=== PATIENT | male | born 1960 | race Caucasian/White ===

== ENCOUNTER 2021-06-01 11:59 | Outpatient (REF) | payer OTHER, SELFPAY ==
--- NOTE | ~2021-06-01 | XR_ITS ---
EXAMINATION: XR WRIST, RIGHT CLINICAL INFORMATION: Pain. COMPARISON: None TECHNIQUE: PA, lateral, and oblique views of the right wrist. FINDINGS: There is a subchondral cyst in the capitate bone and likely in the lunate bone. The scapholunate junction is maintained normal. The scapholunate and other intercarpal joint space is maintained normal. No fracture or dislocation seen. The soft tissues are normal. XR/XR wrist RT min 3V IMPRESSION: Cystic changes in the capitate bone and likely in the lunate bone. No acute fracture or dislocation seen.
== END 2021-06-01 12:00 | disposition home or self-care (01) ==
LOC: HO.XRAY 11:59
PROVIDERS: Absent Provider Registered Nurse Community Health; PCP Registered Nurse Community Health; Visit Provider Family Medicine
DX: M25.531 Pain in right wrist (principal)
CPT/HCPCS: 73110

== ENCOUNTER 2021-09-20 09:32 | Outpatient (REF) | payer OTHER, SELFPAY ==
--- NOTE | ~2021-09-20 | XR_ITS ---
EXAMINATION: XR LUMBOSACRAL SPINE CLINICAL INFORMATION: Low back pain. COMPARISON: None TECHNIQUE: Three views of the lumbosacral spine. FINDINGS: There is normal lumbar segmentation with 5 nonrib-bearing lumbar vertebrae of normal height and normal lumbar lordosis. There is no lumbar vertebral compression, spondylolisthesis, or destructive process. There is mild disc narrowing at L2-L3. Anterior and mild lateral vertebral spurring is present L2 through L5. The SI joints and visualized sacrum are unremarkable. XR/XR lumbar spine 2-3V IMPRESSION: -Mild disc narrowing L2-L3. Vertebral spurring L2-L5. -No vertebral compression or spondylolisthesis.
== END 2021-09-20 09:33 | disposition home or self-care (01) ==
LOC: HO.XRAY 09:32
PROVIDERS: Absent Provider Registered Nurse Community Health; PCP Registered Nurse Community Health; Visit Provider Family Medicine
DX: M54.50 Low back pain, unspecified (principal)
CPT/HCPCS: 72100

== ENCOUNTER → 2022-05-16 15:15 | Outpatient (BNVA) | payer OTHER, SELFPAY | PROVIDERS: PCP Nurse Practitioner Family; Visit Provider Surgery | DX: M67.422 Ganglion, left elbow (principal); I10 Essential (primary) hypertension; E78.00 Pure hypercholesterolemia, unspecified | CPT/HCPCS: 99202 ==

== ENCOUNTER 2022-06-02 13:35 | Emergency (ER) | payer OTHER, SELFPAY ==
--- NOTE | ~2022-06-02 | XR_ITS ---
EXAMINATION: XR CHEST CLINICAL INFORMATION: Chest pain and shortness of breath COMPARISON: None TECHNIQUE: 2 views of the chest were obtained. FINDINGS: Lung volumes are slightly low. Mild vascular crowding at the lung bases. No airspace consolidation. No pleural effusion or pneumothorax. Normal cardiomediastinal silhouette and pulmonary vascularity. No acute osseous injury. XR/XR chest 2V IMPRESSION: Low lung volumes. No acute pulmonary process.
--- NOTE | 2022-06-02 13:48 | ED.GENADULT ---
HPI - General Adult General Chief complaint: General Medical <Kassidy Dewitt CNP - Last Filed: 06/02/22 13:55> Stated complaint: Pain when breathing L&R side <Kassidy Dewitt CNP - Last Filed: 06/02/22 13:55> Time Seen by Provider: 06/02/22 14:26 <Kassidy Dewitt CNP - Last Filed: 06/02/22 13:55> Source: patient <Amanda Vasquez MD - Last Filed: 06/02/22 16:33> Mode of arrival: ambulatory <Amanda Vasquez MD - Last Filed: 06/02/22 16:33> History of Present Illness HPI narrative: 62-year-old male with recent right knee meniscal repair and decreased activity since that time a presenting with increasing chest wall discomfort that is bilateral in nature and he states radiates from the center of his back towards the front and is worsened with movement but denies any association with deep breathing. This is not been associated with any calf swelling, fevers, chills, GI or symptoms. <Amanda Vasquez MD - Last Filed: 06/02/22 16:33> Related Data Home medications: Home Medications Medication Instructions Recorded Confirmed atorvastatin 20 mg tablet 20 mg PO DAILY 05/16/22 05/16/22 lisinopril 10 mg tablet 10 mg PO QAM 05/16/22 05/16/22 <Kassidy Dewitt CNP - Last Filed: 06/02/22 13:55> Allergies/adverse reactions: Allergies Allergy/AdvReac Type Severity Reaction Status Date / Time No Known Allergies Allergy Verified 05/16/22 15:28 <Kassidy Dewitt CNP - Last Filed: 06/02/22 13:55> Review of Systems Review of Systems: Pertinent positives and negatives as stated in HPI <Amanda Vasquez MD - Last Filed: 06/02/22 16:33> PMFSH Past Medical History Source: nursing notes reviewed <Amanda Vasquez MD - Last Filed: 06/02/22 16:33> Social History Social History: Social History Alcohol intake: never Patient Tobacco Use Status: Never used Tobacco Advance Directives: No Advance Directives Information Provided: No <Kassidy Dewitt CNP - Last Filed: 06/02/22 13:55> Physical Exam ED Vital Signs: Vital Signs - 24 hr 06/02/22 13:49 06/02/22 15:39 Temperature 97.9 F 98.2 F Pulse Rate 80 64 Respiratory Rate 18 16 Blood Pressure 126/80 115/71 Pulse Oximetry 98 96 Oxygen Delivery Method Room Air Room Air BMI result Body Mass Index 27.3 <Kassidy Dewitt CNP - Last Filed: 06/02/22 13:55> Vital Signs - 24 hr 06/02/22 13:49 06/02/22 15:39 Temperature 97.9 F 98.2 F Pulse Rate 80 64 Respiratory Rate 18 16 Blood Pressure 126/80 115/71 Pulse Oximetry 98 96 Oxygen Delivery Method Room Air Room Air BMI result Body Mass Index 27.3 VITAL SIGNS: Reviewed. GENERAL: Well developed, well nourished, in no acute distress. HEAD: Normocephalic/atraumatic EYES: PERRLA, EOMI EARS: Ext canals without abnormality NOSE: Nares patent bilateral OROPHARYNX: no oral lesions noted, posterior pharynx clear LUNGS: Normal breath sounds. No adventitious sounds or accessory muscle use. SpO2<98>; CHEST WALL: Reproducible chest pain on palpation bilaterally CARDIOVASCULAR: Regular rate and rhythm without noted murmurs, no JVD or lower extremity edema. ABDOMEN: Soft, non-tender, non-distended with bowel sounds. BACK: Mid back discomfort on palpation at the level of the scapula, no erythema or induration MUSCULOSKELETAL: No tenderness, deformities, or effusions noted on gross inspection. EXTREMITIES: No cyanosis, clubbing or edema; RIGHT KNEE: WELL-HEALING INCISION SITES without erythema or induration no edema, bilateral calf sore without any swelling or cords noted . SKIN: Inspection of the skin reveals no rashes NEUROLOGIC: Alert and oriented x 4. Strength and sensation to light touch were grossly intact x 4. <Amanda Vasquez MD - Last Filed: 06/02/22 16:33> Course Course Course Narrative: This is an RME: Additional HPI, ROS, PE not included below will be deferred to primary provider. Patient is a 62-year-old male presents to the emergency department reporting pain to left and right lateral chest, made worse with deep breathing/ movement, progressively worsening with shortness of breath. Not a smoker. Denies shortness of breath. Pain minimally relieved with tylenol. Denies URI symptoms. Denies fall or injury. Denies history of similar PE: LS clear but diminished, chest wall tenderness upon palpation Plan: labs, EKG, CXR, viral testing <Kassidy Dewitt CNP - Last Filed: 06/02/22 13:55> Medications Administered Discontinued Medications Generic Name Dose Route Start Last Admin Trade Name Freq PRN Reason Stop Dose Admin Acetaminophen 975 mg 06/02/22 15:46 06/02/22 16:17 Acetaminophen 325 Mg Tablet PO 06/02/22 15:47 975 mg ONCE ONE Administration Ibuprofen 400 mg 06/02/22 15:45 06/02/22 16:17 Ibuprofen 400 Mg Tablet PO 06/02/22 15:46 400 mg ONCE ONE Administration Lidocaine 1 patch 06/02/22 15:45 06/02/22 16:15 Lidocaine 4 % Patch Adh..Patch TRANSDERMA 06/02/22 15:46 1 patch ONCE ONE Administration Protocol <Kassidy Dewitt CNP - Last Filed: 06/02/22 13:55> Medications Administered Discontinued Medications Generic Name Dose Route Start Last Admin Trade Name Freq PRN Reason Stop Dose Admin Acetaminophen 975 mg 06/02/22 15:46 06/02/22 16:17 Acetaminophen 325 Mg Tablet PO 06/02/22 15:47 975 mg ONCE ONE Administration Ibuprofen 400 mg 06/02/22 15:45 06/02/22 16:17 Ibuprofen 400 Mg Tablet PO 06/02/22 15:46 400 mg ONCE ONE Administration Lidocaine 1 patch 06/02/22 15:45 06/02/22 16:15 Lidocaine 4 % Patch Adh..Patch TRANSDERMA 06/02/22 15:46 1 patch ONCE ONE Administration Protocol <Amanda Vasquez MD - Last Filed: 06/02/22 16:33> Medical Decision Making Medical Decision Making MDM Narrative: 62-year-old male although high clinical suspicion for decrease activity and feel that this is radicular chest wall pain from the mid upper back as it is reproducible and I have 0 clinical suspicion for cardiopulmonary etiology, unfortunately patient has had recent surgery with decreased activity and patient PERC score is 2. I will proceed with D-dimer. I have reviewed on all investigations and my interpretation is that this is musculoskeletal pain/back pain and patient received combination analgesics and was instructed to continue to increase his physical activity and resume physical therapy it is earliest convenience. D-dimer is returned at 157 and I feel very confident that this is as previously thought associated with musculoskeletal pain and patient will be discharged on a regimen and of analgesics and instructions to increase activity. <Amanda Vasquez MD - Last Filed: 06/02/22 16:33> Differential Diagnosis Differential Diagnoses: The differential diagnosis associated with the presentation includes <Amanda Vasquez MD - Last Filed: 06/02/22 16:33> Please see the discussion above <Amanda Vasquez MD - Last Filed: 06/02/22 16:33> Lab Data MDM Lab Attestation statement: I reviewed the patient's lab results. <Amanda Vasquez MD - Last Filed: 06/02/22 16:33> Please see the discussion above <Amanda Vasquez MD - Last Filed: 06/02/22 16:33> Result Diagrams: 06/02/22 14:35 06/02/22 14:35 <Kassidy Dewitt CNP - Last Filed: 06/02/22 13:55> Labs: Lab Results 06/02/22 06/02/22 06/02/22 Range/Units 14:35 14:35 14:35 WBC 7.5 (4.8-10.8) X10*3/uL RBC 4.47 L (4.60-5.80) X10*6/uL Hgb 13.0 L (14.0-18.0) g/dl Hct 38.2 L (42.0-52.0) % MCV 85.5 (80.0-98.0) fL MCH 29.1 (27.0-33.0) pg MCHC 34.0 (31.0-36.0) g/dl RDW 12.4 (11.0-16.0) % Plt Count 298 (160-400) X10*3/uL MPV 10.1 (9.4-12.4) fL Immature Gran % (Auto) 0.3 (0.0-0.4) % Neut % (Auto) 55.5 (45-73) % Lymph % (Auto) 31.9 (20-40) % Roosevelt % (Auto) 10.5 (2-11) % Eos % (Auto) 1.3 (0-4) % Baso % (Auto) 0.5 (0-2) % Lymph # (Auto) 2.4 (1.2-4.9) X10*3/uL Roosevelt # (Auto) 0.8 (0.1-1.2) X10*3/uL Eos # (Auto) 0.1 (0.0-0.4) X10*3/uL Baso # (Auto) 0.0 (0.0-0.2) X10*3/uL Abs Immat Gran (auto) 0.02 (0.00-0.03) X10*3/uL Absolute Neuts (auto) 4.1 (2.0-8.3) x10*3/uL Absolute Nucleated RBC 0.000 (0.0-0.012) X10*3/uL Nucleated RBC % (auto) 0.0 (0.0-0.2) /100WBC PT 11.2 (10.0-13.1) SEC INR 1.0 (0.9-1.1) D-Dimer High Sensitivty 157 NG/ML Sodium 137 (135-145) mmol/L Potassium 4.3 (3.3-5.1) mmol/L Chloride 106 (96-108) mmol/L Carbon Dioxide 23 (22-29) mmol/L Anion Gap 12 (12-20) BUN 14 (9-16) mg/dL Creatinine 1.07 (0.5-1.4) mg/dL Estim Creat Clear Calc 71.5 Estimated GFR > 60 Random Glucose 111 (60-115) mg/dL Calcium 8.8 (8.4-10.2) mg/dL Total Bilirubin 0.3 (0.0-1.0) mg/dL AST 20 (5-37) U/L ALT 28 (0-40) U/L Alkaline Phosphatase 75 (39-117) U/L Troponin I High Sens (<3.5-35.0) ng/L B-Natriuretic Peptide (<100) pg/mL Total Protein 6.4 L (6.5-8.0) g/dL Albumin 3.7 (3.5-5.0) g/dL Lipase 24 (8-78) U/L COVID-19 (GIUSEPPE) (Negative) COVID-19 Clin Com Influenza Type A ([facility]) (Negative) Influenza Type B ([facility]) (Negative) Influenza A & B Note 06/02/22 06/02/22 06/02/22 Range/Units 14:35 14:35 14:35 WBC (4.8-10.8) X10*3/uL RBC (4.60-5.80) X10*6/uL Hgb (14.0-18.0) g/dl Hct (42.0-52.0) % MCV (80.0-98.0) fL MCH (27.0-33.0) pg MCHC (31.0-36.0) g/dl RDW (11.0-16.0) % Plt Count (160-400) X10*3/uL MPV (9.4-12.4) fL Immature Gran % (Auto) (0.0-0.4) % Neut % (Auto) (45-73) % Lymph % (Auto) (20-40) % Roosevelt % (Auto) (2-11) % Eos % (Auto) (0-4) % Baso % (Auto) (0-2) % Lymph # (Auto) (1.2-4.9) X10*3/uL Roosevelt # (Auto) (0.1-1.2) X10*3/uL Eos # (Auto) (0.0-0.4) X10*3/uL Baso # (Auto) (0.0-0.2) X10*3/uL Abs Immat Gran (auto) (0.00-0.03) X10*3/uL Absolute Neuts (auto) (2.0-8.3) x10*3/uL Absolute Nucleated RBC (0.0-0.012) X10*3/uL Nucleated RBC % (auto) (0.0-0.2) /100WBC PT (10.0-13.1) SEC INR (0.9-1.1) D-Dimer High Sensitivty NG/ML Sodium (135-145) mmol/L Potassium (3.3-5.1) mmol/L Chloride (96-108) mmol/L Carbon Dioxide (22-29) mmol/L Anion Gap (12-20) BUN (9-16) mg/dL Creatinine (0.5-1.4) mg/dL Estim Creat Clear Calc Estimated GFR Random Glucose (60-115) mg/dL Calcium (8.4-10.2) mg/dL Total Bilirubin (0.0-1.0) mg/dL AST (5-37) U/L ALT (0-40) U/L Alkaline Phosphatase (39-117) U/L Troponin I High Sens < 3.5 (<3.5-35.0) ng/L B-Natriuretic Peptide 10 (<100) pg/mL Total Protein (6.5-8.0) g/dL Albumin (3.5-5.0) g/dL Lipase (8-78) U/L COVID-19 (GIUSEPPE) Negative (Negative) COVID-19 Clin Com See Note Influenza Type A ([facility]) (Negative) Influenza Type B ([facility]) (Negative) Influenza A & B Note 06/02/22 Range/Units 14:35 WBC (4.8-10.8) X10*3/uL RBC (4.60-5.80) X10*6/uL Hgb (14.0-18.0) g/dl Hct (42.0-52.0) % MCV (80.0-98.0) fL MCH (27.0-33.0) pg MCHC (31.0-36.0) g/dl RDW (11.0-16.0) % Plt Count (160-400) X10*3/uL MPV (9.4-12.4) fL Immature Gran % (Auto) (0.0-0.4) % Neut % (Auto) (45-73) % Lymph % (Auto) (20-40) % Roosevelt % (Auto) (2-11) % Eos % (Auto) (0-4) % Baso % (Auto) (0-2) % Lymph # (Auto) (1.2-4.9) X10*3/uL Roosevelt # (Auto) (0.1-1.2) X10*3/uL Eos # (Auto) (0.0-0.4) X10*3/uL Baso # (Auto) (0.0-0.2) X10*3/uL Abs Immat Gran (auto) (0.00-0.03) X10*3/uL Absolute Neuts (auto) (2.0-8.3) x10*3/uL Absolute Nucleated RBC (0.0-0.012) X10*3/uL Nucleated RBC % (auto) (0.0-0.2) /100WBC PT (10.0-13.1) SEC INR (0.9-1.1) D-Dimer High Sensitivty NG/ML Sodium (135-145) mmol/L Potassium (3.3-5.1) mmol/L Chloride (96-108) mmol/L Carbon Dioxide (22-29) mmol/L Anion Gap (12-20) BUN (9-16) mg/dL Creatinine (0.5-1.4) mg/dL Estim Creat Clear Calc Estimated GFR Random Glucose (60-115) mg/dL Calcium (8.4-10.2) mg/dL Total Bilirubin (0.0-1.0) mg/dL AST (5-37) U/L ALT (0-40) U/L Alkaline Phosphatase (39-117) U/L Troponin I High Sens (<3.5-35.0) ng/L B-Natriuretic Peptide (<100) pg/mL Total Protein (6.5-8.0) g/dL Albumin (3.5-5.0) g/dL Lipase (8-78) U/L COVID-19 (GIUSEPPE) (Negative) COVID-19 Clin Com Influenza Type A ([facility]) Negative (Negative) Influenza Type B ([facility]) Negative (Negative) Influenza A & B Note See Note <Kassidy Dewitt, [employer] - Last Filed: 06/02/22 13:55> Lab Results 06/02/22 06/02/22 06/02/22 Range/Units 14:35 14:35 14:35 WBC 7.5 (4.8-10.8) X10*3/uL RBC 4.47 L (4.60-5.80) X10*6/uL Hgb 13.0 L (14.0-18.0) g/dl Hct 38.2 L (42.0-52.0) % MCV 85.5 (80.0-98.0) fL MCH 29.1 (27.0-33.0) pg MCHC 34.0 (31.0-36.0) g/dl RDW 12.4 (11.0-16.0) % Plt Count 298 (160-400) X10*3/uL MPV 10.1 (9.4-12.4) fL Immature Gran % (Auto) 0.3 (0.0-0.4) % Neut % (Auto) 55.5 (45-73) % Lymph % (Auto) 31.9 (20-40) % Roosevelt % (Auto) 10.5 (2-11) % Eos % (Auto) 1.3 (0-4) % Baso % (Auto) 0.5 (0-2) % Lymph # (Auto) 2.4 (1.2-4.9) X10*3/uL Roosevelt # (Auto) 0.8 (0.1-1.2) X10*3/uL Eos # (Auto) 0.1 (0.0-0.4) X10*3/uL Baso # (Auto) 0.0 (0.0-0.2) X10*3/uL Abs Immat Gran (auto) 0.02 (0.00-0.03) X10*3/uL Absolute Neuts (auto) 4.1 (2.0-8.3) x10*3/uL Absolute Nucleated RBC 0.000 (0.0-0.012) X10*3/uL Nucleated RBC % (auto) 0.0 (0.0-0.2) /100WBC PT 11.2 (10.0-13.1) SEC INR 1.0 (0.9-1.1) D-Dimer High Sensitivty 157 NG/ML Sodium 137 (135-145) mmol/L Potassium 4.3 (3.3-5.1) mmol/L Chloride 106 (96-108) mmol/L Carbon Dioxide 23 (22-29) mmol/L Anion Gap 12 (12-20) BUN 14 (9-16) mg/dL Creatinine 1.07 (0.5-1.4) mg/dL Estim Creat Clear Calc 71.5 Estimated GFR > 60 Random Glucose 111 (60-115) mg/dL Calcium 8.8 (8.4-10.2) mg/dL Total Bilirubin 0.3 (0.0-1.0) mg/dL AST 20 (5-37) U/L ALT 28 (0-40) U/L Alkaline Phosphatase 75 (39-117) U/L Troponin I High Sens (<3.5-35.0) ng/L B-Natriuretic Peptide (<100) pg/mL Total Protein 6.4 L (6.5-8.0) g/dL Albumin 3.7 (3.5-5.0) g/dL Lipase 24 (8-78) U/L COVID-19 (GIUSEPPE) (Negative) COVID-19 Clin Com Influenza Type A ([facility]) (Negative) Influenza Type B ([facility]) (Negative) Influenza A & B Note 06/02/22 06/02/22 06/02/22 Range/Units 14:35 14:35 14:35 WBC (4.8-10.8) X10*3/uL RBC (4.60-5.80) X10*6/uL Hgb (14.0-18.0) g/dl Hct (42.0-52.0) % MCV (80.0-98.0) fL MCH (27.0-33.0) pg MCHC (31.0-36.0) g/dl RDW (11.0-16.0) % Plt Count (160-400) X10*3/uL MPV (9.4-12.4) fL Immature Gran % (Auto) (0.0-0.4) % Neut % (Auto) (45-73) % Lymph % (Auto) (20-40) % Roosevelt % (Auto) (2-11) % Eos % (Auto) (0-4) % Baso % (Auto) (0-2) % Lymph # (Auto) (1.2-4.9) X10*3/uL Roosevelt # (Auto) (0.1-1.2) X10*3/uL Eos # (Auto) (0.0-0.4) X10*3/uL Baso # (Auto) (0.0-0.2) X10*3/uL Abs Immat Gran (auto) (0.00-0.03) X10*3/uL Absolute Neuts (auto) (2.0-8.3) x10*3/uL Absolute Nucleated RBC (0.0-0.012) X10*3/uL Nucleated RBC % (auto) (0.0-0.2) /100WBC PT (10.0-13.1) SEC INR (0.9-1.1) D-Dimer High Sensitivty NG/ML Sodium (135-145) mmol/L Potassium (3.3-5.1) mmol/L Chloride (96-108) mmol/L Carbon Dioxide (22-29) mmol/L Anion Gap (12-20) BUN (9-16) mg/dL Creatinine (0.5-1.4) mg/dL Estim Creat Clear Calc Estimated GFR Random Glucose (60-115) mg/dL Calcium (8.4-10.2) mg/dL Total Bilirubin (0.0-1.0) mg/dL AST (5-37) U/L ALT (0-40) U/L Alkaline Phosphatase (39-117) U/L Troponin I High Sens < 3.5 (<3.5-35.0) ng/L B-Natriuretic Peptide 10 (<100) pg/mL Total Protein (6.5-8.0) g/dL Albumin (3.5-5.0) g/dL Lipase (8-78) U/L COVID-19 (GIUSEPPE) Negative (Negative) COVID-19 Clin Com See Note Influenza Type A ([facility]) (Negative) Influenza Type B ([facility]) (Negative) Influenza A & B Note 06/02/22 Range/Units 14:35 WBC (4.8-10.8) X10*3/uL RBC (4.60-5.80) X10*6/uL Hgb (14.0-18.0) g/dl Hct (42.0-52.0) % MCV (80.0-98.0) fL MCH (27.0-33.0) pg MCHC (31.0-36.0) g/dl RDW (11.0-16.0) % Plt Count (160-400) X10*3/uL MPV (9.4-12.4) fL Immature Gran % (Auto) (0.0-0.4) % Neut % (Auto) (45-73) % Lymph % (Auto) (20-40) % Roosevelt % (Auto) (2-11) % Eos % (Auto) (0-4) % Baso % (Auto) (0-2) % Lymph # (Auto) (1.2-4.9) X10*3/uL Roosevelt # (Auto) (0.1-1.2) X10*3/uL Eos # (Auto) (0.0-0.4) X10*3/uL Baso # (Auto) (0.0-0.2) X10*3/uL Abs Immat Gran (auto) (0.00-0.03) X10*3/uL Absolute Neuts (auto) (2.0-8.3) x10*3/uL Absolute Nucleated RBC (0.0-0.012) X10*3/uL Nucleated RBC % (auto) (0.0-0.2) /100WBC PT (10.0-13.1) SEC INR (0.9-1.1) D-Dimer High Sensitivty NG/ML Sodium (135-145) mmol/L Potassium (3.3-5.1) mmol/L Chloride (96-108) mmol/L Carbon Dioxide (22-29) mmol/L Anion Gap (12-20) BUN (9-16) mg/dL Creatinine (0.5-1.4) mg/dL Estim Creat Clear Calc Estimated GFR Random Glucose (60-115) mg/dL Calcium (8.4-10.2) mg/dL Total Bilirubin (0.0-1.0) mg/dL AST (5-37) U/L ALT (0-40) U/L Alkaline Phosphatase (39-117) U/L Troponin I High Sens (<3.5-35.0) ng/L B-Natriuretic Peptide (<100) pg/mL Total Protein (6.5-8.0) g/dL Albumin (3.5-5.0) g/dL Lipase (8-78) U/L COVID-19 (GIUSEPPE) (Negative) COVID-19 Clin Com Influenza Type A ([facility]) Negative (Negative) Influenza Type B ([facility]) Negative (Negative) Influenza A & B Note See Note <Amanda Vasquez MD - Last Filed: 06/02/22 16:33> Independent Interpretation I performed an independent interpretation of an: EKG <Amanda Vasquez MD - Last Filed: 06/02/22 16:33> Interpretation: Normal sinus rhythm, HR-69, no STEMI, MI/QRS/QTC are within normal limits. <Amanda Vasquez MD - Last Filed: 06/02/22 16:33> Radiology Impression Radiologist Impression: My interpretation is in agreement with radiology's impression of the imaging study. <Amanda Vasquez MD - Last Filed: 06/02/22 16:33> Independent Historian Family <Amanda Vasquez MD - Last Filed: 06/02/22 16:33> External Record Review External record reviewed: Outpatient record and Prior outpatient labs <Amanda Vasquez MD - Last Filed: 06/02/22 16:33> Discharge Plan Discharge Clinical Impression: Back pain, Chest wall pain <Kassidy Dewitt CNP - Last Filed: 06/02/22 13:55> Patient Disposition: Home, Self-Care <Kassidy Dewitt CNP - Last Filed: 06/02/22 13:55> Instructions: Back Pain (ED), Chest Wall Pain (ED) <Kassidy Dewitt CNP - Last Filed: 06/02/22 13:55> Additional Instructions: 1. Resume all home medications. 2. Tylenol 1000 mg, orally, every 6 hours as needed for pain control. Do not exceed 4000 mg within 24 hours. 3. Ibuprofen 400 mg, orally with milk or food, every 6 hours as needed for pain control. 4. Lidocaine patch, apply this to the middle of your back wear your pain is as directed on the outside packaging. 5. I recommend that you start your physical therapy as soon as possible. And overall increase your activity level. Return to the ER for any worsening symptoms. <Kassidy Dewitt CNP - Last Filed: 06/02/22 13:55> Prescriptions: No Action lisinopril 10 mg tablet 10 mg PO QAM atorvastatin 20 mg tablet 20 mg PO DAILY <Kassidy Dewitt CNP - Last Filed: 06/02/22 13:55> Referrals: [facility] [Primary Care Provider] - <Kassidy Dewitt CNP - Last Filed: 06/02/22 13:55>
[2022-06-02 13:49] VITALS: BP 126/80; PULSE 80; RESP 18; TEMP 36.6; O2SAT 98; BMI 27.3
--- NOTE | 2022-06-02 13:50 | ECG_ITS ---
Test Reason : pain with breathing Blood Pressure : / mmHG Vent. Rate : 069 BPM Atrial Rate : 069 BPM P-R Int : 160 ms QRS Dur : 086 ms QT Int : 376 ms P-R-T Axes : 064 048 062 degrees QTc Int : 402 ms Normal sinus rhythm Normal ECG No previous ECGs available Referred By: Kassidy Dewitt Electronically Signed By:Gamaliel Forbes
--- NOTE | 2022-06-02 14:27 | MHC.EDTECH ---
EKG completed and signed by
--- NOTE | 2022-06-02 14:37 | MHC.EDTECH ---
Labs drawn and covid/flu swab sent to lab
[2022-06-02 14:41] LABS: MANUAL DIFF FLAG NO
[2022-06-02 14:42] LABS: Basophils Percent Auto 0.5 % (0-2); Eosinophils Absolute Auto 0.1 X10*3/uL (0.0-0.4); Eosinophils Percent Auto 1.3 % (0-4); Hematocrit 38.2 % (42.0-52.0); Imm Gran Abs Auto 0.02 X10*3/uL (0.00-0.03); Imm Gran Pct Auto 0.3 % (0.0-0.4); Lymphocytes Absolute Auto 2.4 X10*3/uL (1.2-4.9); Lymphocytes Percent Auto 31.9 % (20-40); Mean Corpuscular Hemoglobin 29.1 pg (27.0-33.0); Mean Corpuscular Volume 85.5 fL (80.0-98.0); Mean Platelet Volume 10.1 fL (9.4-12.4); Monocytes Absolute Auto 0.8 X10*3/uL (0.1-1.2); Monocytes Percent Auto 10.5 % (2-11); Neutrophils Absolute Auto 4.1 x10*3/uL (2.0-8.3); Neutrophils Percent Auto 55.5 % (45-73); Platelet Count 298 X10*3/uL (160-400); Red Blood Count 4.47 X10*6/uL (4.60-5.80); Red Cell Distribution Width 12.4 % (11.0-16.0); White Blood Count 7.5 X10*3/uL (4.8-10.8)
[2022-06-02 14:47] LABS: Prothrombin Time 11.2 SEC (10.0-13.1)
[2022-06-02 14:58] LABS: COVID-19 Test Negative (Negative); IDNOW Serial# 55D5AD1C
[2022-06-02 14:59] LABS: Alanine Aminotransferase 28 U/L (0-40); Albumin Level 3.7 g/dL (3.5-5.0); Alkaline Phosphatase 75 U/L (39-117); Anion Gap 12 (12-20); Aspartate Amino Transferase 20 U/L (5-37); Bilirubin Total 0.3 mg/dL (0.0-1.0); Blood Urea Nitrogen 14 mg/dL (9-16); Calcium 8.8 mg/dL (8.4-10.2); Carbon Dioxide 23 mmol/L (22-29); Chloride 106 mmol/L (96-108); Creatinine Clr Calc Pharmacy 71.5; Estimated Glomerular Filt Rate > 60; Glucose Random 111 mg/dL (60-115); Lipase 24 U/L (8-78); Potassium 4.3 mmol/L (3.3-5.1); Sodium 137 mmol/L (135-145); Total Protein 6.4 g/dL (6.5-8.0)
[2022-06-02 15:00] LABS: IDNOW Serial# 9DB6401D; Influenza A Negative (Negative); Influenza B2 Negative (Negative)
[2022-06-02 15:04] LABS: B Type Natriuretic Peptide 10 pg/mL (<100)
[2022-06-02 15:07] LABS: Troponin-I High Sensitivity < 3.5 ng/L (<3.5-35.0)
[2022-06-02 15:39] VITALS: BP 115/71; PULSE 64; RESP 16; TEMP 36.8; O2SAT 96
[2022-06-02 15:52] LABS: D Dimer High Sensitivity 157 NG/ML
[2022-06-02] MEDS: Lidocaine 4 % Patch ADH..PATCH 1 PATCH TRANSDERMA (16:15)
[2022-06-02] MEDS: Ibuprofen 400 MG TABLET PO (16:17)
[2022-06-02] MEDS: Acetaminophen 325 MG TABLET 975 MG PO (16:17)
== END 2022-06-02 16:54 | disposition home or self-care (01) ==
PROVIDERS: Nurse Practitioner Family; Emergency Provider Student in an Organized Health Care Education/Training Program
DX: M54.50 Low back pain, unspecified (principal); R07.89 Other chest pain; R06.02 Shortness of breath; Z20.822 Contact with and (suspected) exposure to COVID-19; Z20.828 Contact with and (suspected) exposure to other viral communicable diseases; Z79.899 Other long term (current) drug therapy
CPT/HCPCS: 71046; 80053; 83690; 83880; 84484; 85025; 85379; 85610; 87502; 87635; 93005; 99284

== ENCOUNTER 2022-10-24 16:22 | Outpatient (REF) | payer OTHER, SELFPAY ==
[2022-10-24 19:31] LABS: Folate 14.6 ng/mL (> or = 4.0); Vitamin B12 353 pg/mL (200-900)
[2022-10-29 22:33] LABS: Lyme Abs Screen <0.90 index
== END 2022-10-24 16:23 | disposition home or self-care (01) ==
LOC: HO.LAB 16:22
PROVIDERS: PCP Nurse Practitioner Family; Visit Provider Psychiatry & Neurology Neurology
DX: G93.40 Encephalopathy, unspecified (principal)
CPT/HCPCS: 36415; 82607; 82746; 86617; 86618

== ENCOUNTER 2022-12-13 08:17 | Outpatient (REF) | payer OTHER, SELFPAY ==
--- NOTE | ~2022-12-13 | MR_ITS ---
MRI OF THE BRAIN WITHOUT IV CONTRAST INDICATION: Encephalopathy. COMPARISON: None available. TECHNIQUE: Multiplanar multisequence MR imaging of the brain was obtained without IV contrast. FINDINGS: There is no hydrocephalus, extra-axial surface collection, or herniation. There are nonspecific and mildly expansile confluent T2 signal changes involving the cortex and subcortical white matter of the left parasagittal parietal lobe measuring up to 2.3 cm for which postcontrast imaging is recommended for further assessment. The major flow voids at the skull base are preserved. There is no acute infarct on diffusion-weighted imaging. There is no intracranial hemorrhage on the gradient recalled echo acquisition. The midline structures are normal. The cerebellar tonsils are normally positioned. The cerebellum and brainstem are normal. The craniocervical junction is normal. Osseous marrow signal intensity is homogenous. The visualized soft tissues are unremarkable. MR/MR head/brain wo con IMPRESSION: There are nonspecific and mildly expansile confluent T2 signal changes involving the cortex and subcortical white matter of the left parasagittal parietal lobe measuring up to 2.3 cm for which postcontrast imaging is recommended for further assessment.
== END 2022-12-13 08:18 | disposition home or self-care (01) ==
LOC: HO.MRI 08:17
PROVIDERS: PCP Nurse Practitioner Family; Visit Provider Psychiatry & Neurology Neurology
DX: G93.40 Encephalopathy, unspecified (principal)
CPT/HCPCS: 70551

== ENCOUNTER 2022-12-13 11:32 | Outpatient (REF) | payer OTHER, SELFPAY ==
[2022-12-13 15:00] LABS: Cholesterol 142 mg/dL; HDL Cholesterol 38 mg/dL; LDL Cholesterol Calculated 85 mg/dl; Triglycerides 98 mg/dL
== END 2022-12-13 11:33 | disposition home or self-care (01) ==
LOC: HO.HHCL 11:32
PROVIDERS: Visit Provider Nurse Practitioner Family
DX: E78.2 Mixed hyperlipidemia (principal)
CPT/HCPCS: 36415; 80061

== ENCOUNTER 2023-01-28 12:11 | Outpatient (REF) | payer OTHER, SELFPAY ==
--- NOTE | ~2023-01-28 | MR_ITS ---
EXAMINATION: MR BRAIN WITH CONTRAST ONLY CLINICAL INFORMATION: Follow up for abnormal findings on previous noncontrast MRI. COMPARISON: 03/24/2023 MRI. TECHNIQUE: Multiplanar multisequence MR imaging of the brain was done following intravenous administration of 7.5 mL of Gadavist FINDINGS: With attention to the previously noted zone of nonspecific T2 hyperintensity in the mesial left parietal lobe, there is no associated abnormal enhancement. There is no discernible mass effect on the adjacent cortical sulci. The remainder of the brain demonstrates no evidence for intracranial mass lesion or pathologic intracranial enhancement. There is normal enhancement within the visualized major dural venous sinuses and overlying cortical veins. MR/MR head/brain w con IMPRESSION: No definite enhancement corresponding to the previously noted abnormality in the left parietal lobe. Etiology is uncertain. Cannot exclude the possibility of a nonenhancing low-grade glioma. Recommend a followup MRI with contrast at a clinically appropriate interval to reassess for stability.
[2023-01-28] MEDS: gadobutroL 7.5 ML VIAL IVPUSH (12:28)
== END 2023-01-28 12:12 | disposition home or self-care (01) ==
LOC: HO.MRI 12:11
PROVIDERS: PCP Nurse Practitioner Family; Visit Provider Psychiatry & Neurology Neurology
DX: G93.9 Disorder of brain, unspecified (principal)
CPT/HCPCS: 70552; A9585

== ENCOUNTER 2023-08-29 09:31 | Outpatient (REF) | payer OTHER, SELFPAY ==
--- NOTE | ~2023-08-29 | MR_ITS ---
EXAMINATION: MR BRAIN WITHOUT AND WITH CONTRAST CLINICAL INFORMATION: Encephalopathy. COMPARISON: MRI scans 12/13/2022 and 01/28/2023. TECHNIQUE: Multiplanar, multisequence MRI of the brain was obtained before and after the intravenous administration of 8.5 mL Gadavist. FINDINGS: No diffusion abnormalities are identified to suggest an acute or subacute infarct. No mass effect or midline shift is seen. The ventricles and sulci are normal in size. The study demonstrates an area of nonexpansile hyperintense T2/FLAIR signal in the cortical and subcortical white matter in the left parasagittal parieto-occipital area. There is no abnormal enhancement in this region. No extra-axial fluid collections are seen. The brainstem appears normal. On postcontrast imaging, there is no abnormal parenchymal or leptomeningeal enhancement. No pathologic magnetic susceptibility artifact is identified on the gradient refocused acquisition. The cerebellar tonsils have normal contour and position, and the craniocervical junction appears normal. Marrow signal and midline structures are normal. The major intracranial flow-voids at the level of the [place] of [place] are preserved. The dural venous sinus flow-voids are maintained. There is trace fluid at the right mastoid tip. There is mild opacification of the bilateral ethmoid sinuses. The frontal sinuses are hypoplastic. MR/MR head/brain wo/w con IMPRESSION: 1. There are no acute bleeds or infarcts. There are no masses or areas of abnormal enhancement. 2. The study redemonstrates an area of nonexpansile hyperintense T2/FLAIR signal in the left parasagittal parieto-occipital area, which is nonspecific, and which appears stable.
[2023-08-29] MEDS: gadobutroL 10 ML VIAL IVPUSH (10:10)
== END 2023-08-29 09:32 | disposition home or self-care (01) ==
LOC: HO.MRI 09:31
PROVIDERS: PCP Nurse Practitioner Family; Visit Provider Psychiatry & Neurology Neurology
DX: G93.40 Encephalopathy, unspecified (principal)
CPT/HCPCS: 70553; A9585

== ENCOUNTER 2023-09-03 15:21 | Outpatient (REF) | payer OTHER, SELFPAY | END 2023-09-03 15:22 | disposition home or self-care (01) | LOC: HO.LAB 15:21 | PROVIDERS: PCP Nurse Practitioner Family; Visit Provider Psychiatry & Neurology Neurology | DX: G04.90 Encephalitis and encephalomyelitis, unspecified (principal) | CPT/HCPCS: 83519; 86052; 86255; 86341; 86596 ==

== ENCOUNTER 2023-09-06 10:16 | Outpatient (REF) | payer OTHER, SELFPAY ==
[2023-09-06 13:35] LABS: Alanine Aminotransferase 23 U/L (0-40); Albumin Level 3.9 g/dL (3.5-5.0); Alkaline Phosphatase 77 U/L (39-117); Anion Gap 15 (12-20); Aspartate Amino Transferase 18 U/L (5-37); Bilirubin Total 0.5 mg/dL (0.0-1.0); Blood Urea Nitrogen 14 mg/dL (9-16); Calcium 8.9 mg/dL (8.4-10.2); Carbon Dioxide 23 mmol/L (22-29); Chloride 107 mmol/L (96-108); Cholesterol 154 mg/dL (<200); Estimated Glomerular Filt Rate > 60; Glucose Random 103 mg/dL (60-115); HDL Cholesterol 42 mg/dL (>40); LDL Cholesterol Calculated 83 mg/dL (<100); Potassium 3.9 mmol/L (3.3-5.1); Sodium 141 mmol/L (135-145); Total Protein 6.9 g/dL (6.5-8.0); Triglycerides 148 mg/dL (<150)
[2023-09-06 13:48] LABS: Vitamin D 25-OH Total 12.9 ng/mL (>30)
[2023-09-06 14:09] LABS: Folate 7.8 ng/mL (> or = 4.0)
[2023-09-06 14:37] LABS: Vitamin B12 358 pg/mL (200-900)
== END 2023-09-06 10:17 | disposition home or self-care (01) ==
LOC: HO.LAB 10:16
PROVIDERS: PCP Nurse Practitioner Family; Visit Provider Nurse Practitioner Family
DX: I10 Essential (primary) hypertension (principal); E78.2 Mixed hyperlipidemia; E55.9 Vitamin D deficiency, unspecified; R53.83 Other fatigue
CPT/HCPCS: 36415; 80053; 80061; 82306; 82607; 82746

== ENCOUNTER 2023-09-12 16:37 | Outpatient (REF) | payer OTHER, SELFPAY ==
[2023-09-12 19:09] LABS: Erythrocyte Sedimentation Rate 12 MM/HR (0-15)
[2023-09-15 08:14] LABS: Syphilis Screen Nonreactive (Nonreactive)
[2023-09-15 08:48] LABS: HIV AB/AG Nonreactive (Nonreactive); HIV Num 1 0.04 S/CO (0.00-0.99)
[2023-09-17 15:39] LABS: Babesia IgG <1:64 titer (<1:64); Babesia IgM <1:20 titer (<1:20)
[2023-09-23 13:08] LABS: Anti Nuclear Antibody Screen POSITIVE (NEGATIVE)
[2023-09-23 13:12] LABS: ANA Pattern 2 Nuclear, Homogeneous; Anti Nuclear Antibody Pattern Nuclear, Speckled
== END 2023-09-12 16:38 | disposition home or self-care (01) ==
LOC: HO.LAB 16:37
PROVIDERS: PCP Nurse Practitioner Family; Visit Provider Psychiatry & Neurology Neurology
DX: Z11.4 Encounter for screening for human immunodeficiency virus [HIV] (principal); G04.90 Encephalitis and encephalomyelitis, unspecified
CPT/HCPCS: 36415; 85652; 86038; 86039; 86753; 86780; 87389

== ENCOUNTER 2023-10-03 09:29 | Day surgery (SDC) | payer OTHER, SELFPAY ==
--- NOTE | ~2023-10-03 | FL_ITS ---
Fluoroscopic lumbar puncture Indication: Encephalopathy Risks and benefits and possible complications were discussed with the patient and the consent form was signed. Patient was placed prone on the fluoroscopy table. The back was prepped and draped in routine sterile fashion. Betadine was used as a skin antiseptic. Utilizing fluoroscopic guidance, the L4-5 interlaminar space was accessed with a 22 gague Iris spinal needle and clear CSF fluid obtained. Opening pressure was 5 cm H20 in the left lateral decubitus position. 8 cc of fluid was sent for analysis. The needle was removed without immediate complications. Total fluoroscopy time: 0.9 min FL/FL guided lumbar puncture LP Impression: Successful fluoroscopic lumbar puncture This procedure was performed by Mikey Irwin PA-C and supervised by Dr. Rai.
[2023-10-03 09:50] VITALS: BMI 27.3
[2023-10-03 12:00] VITALS: BP 120/66; PULSE 62; RESP 16; TEMP 36.6; O2SAT 97
[2023-10-03 12:15] VITALS: BP 119/72; PULSE 59; RESP 16; O2SAT 97
[2023-10-03 12:18] LABS: CSF Appearance Clear, Colorless; CSF Tube # 1
[2023-10-03 12:28] LABS: Glucose CSF 70 mg/dL; Total Protein CSF 55.3 mg/dL (15-45)
[2023-10-03 12:30] VITALS: BP 127/68; PULSE 60; RESP 16; O2SAT 97
[2023-10-03 12:45] VITALS: BP 149/74; PULSE 63; RESP 16; TEMP 36.6; O2SAT 96
[2023-10-03 13:13] LABS: Oligoclonal Serum Yes
[2023-10-03 13:31] LABS: Appearance CSF CLEAR; CSF Monos 5 %; CSF Tube # 4; Color CSF COLORLESS; Lymphocytes CSF 15 %; Red Blood Cell CSF 0 MM*3; White Blood Cell CSF 2 MM*3
[2023-10-03 13:40] LABS: Cryptococcus neoformans/gattii Not Detected (Not Detect.); Enterovirus Not Detected (Not Detect.); Escherichia coli K1 Not Detected (Not Detect.); Haemophilus influenzae Not Detected (Not Detect.); Herpes simplex virus 1 Not Detected (Not Detect.); Herpes simplex virus 2 Not Detected (Not Detect.); Human herpesvirus 6 Not Detected (Not Detect.); Human parechovirus Not Detected (Not Detect.); Listeria monocytogenes Not Detected (Not Detect.); Neisseria meningitidis Not Detected (Not Detect.); Streptococcus agalactiae Not Detected (Not Detect.); Streptococcus pneumoniae Not Detected (Not Detect.); Varicella zoster virus Not Detected (Not Detect.)
[2023-10-05 12:44] LABS: Albumin 3.6 g/dL (3.6-5.1); Albumin, CSF 31.1 mg/dL (8.0-42.0); IgG 945 mg/dL (600-1540); IgG, CSF 4.3 mg/dL (0.8-7.7)
[2023-10-11 18:38] LABS: Oligoclonal Banding Absent (Absent)
== END 2023-10-03 13:03 | disposition home or self-care (01) ==
PROVIDERS: Physician Assistant Surgical; PCP Nurse Practitioner Family; Visit Provider Psychiatry & Neurology Neurology
PROC: 009U3ZZ Drainage of Spinal Canal, Percutaneous Approach (ICD-10-PCS; CPT 62270; principal; 2023-10-03 11:00)
DX: G04.90 Encephalitis and encephalomyelitis, unspecified (principal); G43.109 Migraine with aura, not intractable, without status migrainosus; I10 Essential (primary) hypertension; Z79.899 Other long term (current) drug therapy
CPT/HCPCS: 36415; 62328; 82042; 82945; 83916; 84157; 87015; 87070; 87205; 87483; 89051

== ENCOUNTER → 2023-10-03 11:20 | Outpatient (BNV) | payer OTHER, SELFPAY | PROVIDERS: PCP Nurse Practitioner Family; Visit Provider Physician Assistant Surgical | DX: G04.90 Encephalitis and encephalomyelitis, unspecified (principal) | CPT/HCPCS: 62328 ==

== ENCOUNTER 2024-08-26 10:13 | Outpatient (REF) | payer OTHER, SELFPAY ==
--- NOTE | ~2024-08-26 | MR_ITS ---
EXAMINATION: MR BRAIN WITHOUT AND WITH CONTRAST CLINICAL INFORMATION: Memory loss. Brain lesion. COMPARISON: August 29, 2023. TECHNIQUE: Multiplanar, multisequence MRI of the brain was obtained before and after the intravenous administration of 8 mL gadolinium based (Gadavist) without reported immediate complications. FINDINGS: There is a hyperintense T2 FLAIR restricted diffusion and heterogeneously enhancing 3.8 x 2.7 x 2.4 cm intra-axial mass centered in the cerebral cortex of the mid distal right superior frontal gyrus and collapsing the cingulate gyrus with without perilesional hyperintense T2 FLAIR nonenhancing signal and mass effect upon the body of the corpus callosum and lateral ventricle. There is a 2 mm right the left subfalcine herniation. There is associated susceptibility signal probably related to increased vasculature. There is a 2.4 x 1.7 x 2.1 cm, intra-axial, hyperintense T2 FLAIR, nonrestricted or enhancing signal abnormality/mass centered in the cerebral cortex of the distal superior frontal gyrus without perilesional vasogenic edema or mass effect nor midline shift. There is a 1.9 x 1.3 x 1.8 cm, intra-axial, hyperintense T2 FLAIR, nonrestricted or enhancing signal mass abnormality centered in the cerebral cortex of the left frontoparietal region anterior and posterior to the marginal sulcus and involving mostly the medial left postcentral gyrus without perilesional vasogenic edema or mass effect. No acute intracranial hemorrhage. No intestinal herniation. No hydrocephalus. Flow-void signal within the main cerebral vessels is normal. Main cerebral venous sinuses are patent without intraluminal filling defects. Sellar/suprasellar region demonstrated no signal abnormality or masses. Craniocervical junction is intact and normal. 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 High-grade glioma/glioblastoma among the differential diagnostic considerations. The lesion in the right mid frontal gyrus demonstrates perilesional vasogenic edema and mass effect upon the adjacent structures. Discussed with the referring physician Dr. Russell Staples on August 26, 2024 at 12:10 PM. Electronically signed by: Heraclio Govea MD 08/26/2024 12:41 PM EDT
[2024-08-26] MEDS: gadobutroL 10 ML VIAL IVPUSH (11:20)
--- OUTSIDE RECORDS SUMMARY | 2024-08-26 11:45 | XMS_ITS | Encounter Summary ---
Author Organization [employer] Address [address] [place] [address] 7 [place] [address] Care Team Providers Care Sales Service Manager Name Role Phone Linh Johnson CAFE ASSOCIATE Primary Care Provider [phone] Reason for Visit * Reason Onset Date Comments Transfer pt 08/24/2024 Encounter Details Date Type Department Care Team ([facility] st Contact Info) Description 08/24/2024 Telephone [facility] [address] [place], [place] [phone] Linh Johnson NP [address] [place] [address] Transfer pt Social History Tobacco Use Types Packs/Day Years Used Date Smoking Tobacco: Former Cigarettes Smokeless Tobacco: Never Comments:Last smoked 40 year s ago Alcohol Use Standard Drinks/Week Comments Not Currently 0 (1 standard drink = 0.6 oz pur e alcohol) Depression Answer Date Recorded Patient Health Questionnaire-9 Score 5 08/29/2023 Patient Health Questionnaire-9 Score 5 08/29/2023 Last PHQ-9: Questionnaire Data Not on file 0 08/29/2023 Housing Stability Answer Date Recorded What is your housing situation today? I have angle guaman 06/06/[address] you li ve. Do you have problems with any of the following? None of the above 06/06/2023 Food Insecurity Answer Date Recorded Within the past 12 months, y ou worried that your food would run out before you got money to buy more: Never True 06/06/2023 Within the past 12 months,th e food you bought just didn't last and you didn't have enough money to get more: Never True 06/2023 Transportation Answer Date Recorded In the past 12 months, has l ack of transportation kept you from medical appts, meetings, work or from getting things needed for daily living? No 06/06/2023 Utilities Answer Date Recorded In the past 12 months, has t he electric, gas, oil or water company threatened to shut off services in your home? No 06/06/2023 Depression Answer Date Recorded Patient Health Questionnaire-2 Score 2 08/29/2023 Sex and Gender Information Value Date Recorded Sex Assigned at Male 03/04/2022 10:32 AM EDT Legal Sex Male 10:32 AM EDT Gender Identity Male 03/04/2022 10:32 AM EDT Sexual Orientation Straight 03/04/2022 10 :32 AM EDT documented as of this encounter Miscellaneous Notes * Telephone Encounter - Cristinooj Jennings - 08/24/2024 10:47 AM EDT Tc from daughter requesting a call back stating pt would like a male provider. Please contact daughter at [phone]. documented in this encounter Plan of Treatment Not on file documented as of this encounter Visit Diagnoses Not on filedocumented in this encounter Additional Health Concerns Assessment Noted Time PHQ-9 Depression Total Score: 5 08/29/19 24 3:44 PM EDT documented as of this encounter Care Teams Sales Service Manager Relationship Specialty Start Date End Date Linh Johnson NP [address] [place] [id number] PCP - General Family Medicine 01/02/24 documented as of this encounter
--- OUTSIDE RECORDS SUMMARY | 2024-08-26 11:45 | XMS_ITS | Encounter Summary ---
Author Organization [employer] Address [address] [place] [address] 7 [place] [address] Care Team Providers Care Registration Rep Name Role Phone Linh Johnson NP Primary Care Provider [phone] Reason for Visit * Reason Onset Date Comments Med Refill 06/25/2024 Encounter Details Date Type Department Care Team ([facility] st Contact Info) Description 06/25/[address] [facility] MEDICINE [address] [place], [place] [phone] Naa Patrick FNP [address] [place] [address] Mixed hyperlipidemia Social History Tobacco Use Types Packs/Day Years [...] AM EDT documented as of this encounter Plan of Treatment Not on file documented as of this encounter Visit Diagnoses Diagnosis Mixed hyperlipidemia documented in this encounter Additional Health Concerns Assessment Noted Time PHQ-9 Depression Total Score: 5 08/29/19 24 3:44 PM EDT documented as of this encounter Care Teams Registration Rep Relationship Specialty Start Date End Date Linh Johnson NP [address] [place] [address] PCP - General Family Medicine 01/02/24 documented as of this encounter
--- OUTSIDE RECORDS SUMMARY | 2024-08-26 11:45 | XMS_ITS | Clinical Summary ---
Author Organization [employer] Address [address] [place] [address] [address] [place] [address] Care Team Providers Care Hired Help Name Role Phone Linh Johnson NP Primary Care Provider [phone] Allergies No known active allergies Medications cyclobenzaprine (Flexeril) 10 MG tablet Take 1 tablet by mouth every 12 (twelve) hours. 2 Active erythromycin (Romycin) 5 MG/GM ophthalmic ointment Apply to affected eye(s) every 8 (eight) hours. 1 Active guaiFENesin (Mucinex) 600 MG 12 hr tablet Take 1 tablet by mouth every 12 (twelve) hours. 2 Active ibuprofen 800 MG tablet Take 1 tablet by mouth in the morning and 1 tablet at noon and 1 tablet in the evening. 2 Active [facility] Saline Nasal [place] 0.65 % nasal sprayIndications:A llergy, sequela USE 1 TO 2 SPRAYS IN EACH NOSTRIL EVERY 2 TO 3 HOURS NEEDED FOR NASAL CONGESTION 44 mL 2 Active meloxicam (Mobic) 15 MG tablet Take 15 mg by mouth in the morning. 3 Active atorvastatin (Lipitor) 20 MG tabletIndications: Mixed hyperlipidemia TAKE 1 TABLET BY MOUTH EVERY DAY IN THE MORNING 90 tablet 3 5 Active lisinopril 10 MG tabletIndications: Primary hypertension Take 1 tablet (10 mg) by mouth in the morning. 90 tablet 1 5 Active Active Problems Problem Noted Date Diagnosed Date Acute conjunctivitis 11/25/2022 Pain in eye 11/25/2022 Essential hypertension 05/15/2022 Mixed hyperlipidemia 05/15/2022 Synovial cyst of popliteal space 04/25/2017 Osteoarthritis of knee 04/25/2017 Anterior knee pain 03/25/2017 Encounters Date Type Department Care Team Description 08/24/2024 Telephone [facility] [address] [place] [address] Linh Johnson, STEPH Transfer pt 06/25/2024 Refill [facility] [address] [place] [address] Naa Patrick FNP Mixed hyperlipidemia 06/21/2024 Refill [facility] [address] [place] [address] Naa Patrick FNP Mixed hyperlipidemia; Primary hypertension 06/21/2024 Refill [facility] [address] [place], [place] [phone] Linh Johnson, STEPH Primary hypertension from Last 3 Months Immunizations Name Administration Dates Next Due Influenza injectable quadriv alent IIV4 with preservative 05/03/2022,03/25/2017 Influenza injectable quadrivalent preservative f ree 03/22/2018 Tdap 03/25/2017 Family History Medical History Relation Name Comments Hypertension Mother Hyperlipidemia Sister Hypertension Sister Relation Name Status Comments Mother Sister Social History Tobacco Use Types Packs/Day Years [...] Orientation Straight 03/04/2022 10 :32 AM EDT Last Filed Vital Signs Vital Sign Reading Time Taken Comments Blood Pressure 128/74 08/29/2023 3:00 PM EDT Pulse 74 08/29/2023 3:00 PM EDT Temperature 36.6 ??C (97.9 ??F) 12/13/2022 1 0:14 AM EDT Respiratory Rate 20 08/29/2023 3:00 PM EDT Oxygen Saturation 97% 08/29/2023 3:00 PM EDT Inhaled Oxygen Concentration - - Weight 85.2 kg (187 lb 12.8 oz) 08/29/2023 3:00 PM EDT Height 167.6 cm (5' 6 ) 05/30/2023 2:40 PM EST Body Mass Index 30.31 05/30/2023 2:40 PM EST Plan of Treatment Health Maintenance Due Date Last Done Comments CT Colonography 1960 Colonoscopy 1960 FIT DNA/Cologuard 1960 FIT 1960 FOBT 1960 Sigmoidoscopy 1960 Alcohol/Substance Use Screening 1972 Pneumococcal Vaccine: 50+ Years (1 of 1 - PCV) 2010 Zoster Vaccines (1 of 2) 2010 COVID-19 Vaccine (4 - season) 2024 11/16/2021, 09/20/2020, 08/30/2020 Influenza Vaccine (#1) 2024 , 03/22/2018, 03/25/2017 Depression Screening 08/28/2024 08/29/2023, 08/29/19 24 SDOH Screening 08/28/2024 08/29/2023 Tobacco Screening 08/28/2024 08/29/2023 DTaP/Tdap/Td Vaccines (2 - Td or Tdap) 03/25/2027 03/25/2017 Lipid Panel 09/05/2028 09/06/2023, 0805/2022, 05/03/2022, Additional history exists Colorectal Cancer Screening 11/03/2028 Postponed from 1960 (Other System Reasons) RSV Patients and Patients Aged 60 years or older (1 - 1-dose 75+ series) 2035 HIV Screening Discontinued 09/12/2023 HIB Vaccines Aged Out No longer eligi ble based on patient's age to complete this topic HPV Vaccines Aged Out No longer eligi ble based on patient's age to complete this topic Hepatitis A Vaccines Aged Out No long er eligible based on patient's age to complete this topic Hepatitis B Vaccines Aged Out No long er eligible based on patient's age to complete this topic Hepatitis C Screening Discontinued IPV Vaccines Aged Out No longer eligi ble based on patient's age to complete this topic Meningococcal Vaccine Aged Out No jaimie fredy eligible based on patient's age to complete this topic RSV under 20 months Aged Out No longe r eligible based on patient's age to complete this topic Rotavirus Vaccines Aged Out No longer eligible based on patient's age to complete this topic Procedures Procedure Name Priority Date/Time Associated Diagnosis Comments HIV 1/2 ANTIGEN/ANTIBODY, FOURTH GENERATION W/RFL Routine 09/12/2023 4:50 PM EDT LIPID PANEL, STANDARD Routine 09/06/2023 12:00 AM EDT Mixed hyperlipidemia from Last 3 Months or Most Recently Relevant to Health Maintenance Results * HIV-1/2 Antigen and Antibodies, Fourth Generation, with Reflexes (09/12/2023 4:50 PM EDT) HIV AB/AG Nonreactive Nonreactive [facility] Comment:HIV-1 p24 Ag and/or HIV-1/HIV-2 Ab not detected.A test result that is nonreactive does not exclude thepossibility of exposure to or infection with HIV-1 and/orHIV-2. Nonreactive results in this assay for individualswith prior exposure to HIV-1 and/or HIV-2 may be due toantigen and antibody levels that are below the limit ofdetection of this assay.The [email or web address] HIV Ag/Ab Combo assay result andsupplemental assay results should be interpreted inconjunction with the patient's clinical presentation,history and other laboratory results. If the results areinconsistent with clinical evidence, additional testing issuggested to confirm the result. 09/12/2023 4:50 PM EDT 09/12/2023 4:51 PM EDT us Generic External Data Provider LAB BLOOD ORDERAB LES Final Result [facility] [address] [place] [address] [phone] * Lipid Panel, Standard (09/06/2023 12:00 AM EDT) Triglycerides 148 <150 mg/dL [facility] Comment:Desirable Triglyceri de: less than 150 mg/dLBorderline High Triglyceride 150-199 mg/dLHigh Triglyceride: 200-499 mg/dLVery High Triglyceride: greater than or equal to 5OO mg/dL Cholesterol 154 <200 mg/dL [facility] Comment:Desirable Cholestero l: less than 200 mg/dLBorderline High Cholesterol: 200-239 mg/dLHigh Cholesterol: greater than 239 mg/dL LDL Cholesterol Calculated 83 <100 mg/dL [facility] Comment:Desirable LDL: less than 100 mg/dLNear Optimal/Above Optimal LDL: 110- 129 mg/dLBorderline High LDL: 130-159 mg/dLHigh LDL: 160-189 mg/dLVery High LDL: greater than or equal to 190 mg/dL HDL Cholesterol 42 >40 mg/dL [facility] Comment:Desirable HDL: great er than 40 mg/dL Note: This HDL assay may give artificially low results in patients with liver disease. Blood Venous blood specimen / Unknown 09/06/2023 09/06/2023 Naa Kerricathleen FICTION AND NONFICTION WRITER PROSE LAB BLOOD ORDERABLES Final Resu lt [facility] [address] [place] [address] [phone] from Last 3 Months or Most Recently Relevant to Health Maintenance Insurance [facility] Care Teams Hired Help Relationship Specialty Start Date End Date Linh Johnson NP [address] [place] [id number] PCP - General Family Medicine 01/02/24
--- OUTSIDE RECORDS SUMMARY | 2024-08-26 11:45 | XMS_ITS | Encounter Summary ---
Author Organization [employer] Address [address] [place] [address] 7 [place] [address] Care Team Providers Care Unemployment Benefits Claims Taker Name Role Phone Naa Patrick DIRECTOR DATA MANAGEMENT Primary Care Provider [phone] Linh Johnson MAINTENANCE MECHANIC Primary Care Provider [phone] Reason for Visit * Reason Comments Med Refill Encounter Details Date Type Department Care Team (Late st Contact Info) Description 06/27/2022 Refill [facility] MED[facility]INE [address] [place] [address] [facility] [address] [place] [address] Primary hypertension Social History Tobacco Use Types Packs/Day Years Used Date Smoking Tobacco: Former Cigarettes Smokeless Tobacco: Never Alcohol Use Standard Drinks/Week Comments Never 0 (1 standard drink = 0.6 oz pur e alcohol) Depression Answer Date Recorded Patient Health Questionnaire-9 Score 0 05/03/2022 Depression Answer Date Recorded Patient Health Questionnaire-2 Score 0 05/03/2022 Sex and Gender Information Value Date Recorded Sex Assigned at Male 03/04/2022 10:32 AM EDT Legal Sex Male 10:32 AM EDT Gender Identity Male 03/04/2022 10:32 AM EDT Sexual Orientation Straight 03/04/2022 10 :32 AM EDT COVID-19 Exposure Response Date Recorded In the last 10 days, have yo u been in contact with someone who was confirmed or suspected to have Coronavirus/COVID-19? No / Unsure 06/21/2022 3:07 PM EST documented as of this encounter Miscellaneous Notes * Telephone Encounter - Sho Makris, DIRECTOR DATA MANAGEMENT - 06/27/2022 3:04 PM EST Approving, but needs appt for additional refills. documented in this encounter Plan of Treatment Not on file documented as of this encounter Visit Diagnoses Diagnosis Primary hypertension Unspecified essential hypertension documented in this encounter Additional Health Concerns Assessment Noted Time PHQ-9 Depression Total Score: 0 05/03/20 10:32 AM EST documented as of this encounter Care Teams Unemployment Benefits Claims Taker Relationship Specialty Start Date End Date Naa Patrick FNP [address] [place] [address] PCP - General Family Medicine 02/12/22 01/01/24 Linh Johnson NP [address] [place] [address] PCP - General Family Medicine 01/02/24 documented as of this encounter
--- OUTSIDE RECORDS SUMMARY | 2024-08-26 11:45 | XMS_ITS | Encounter Summary ---
Author Organization [employer] Address [address] [place] [address] 7 [place] [address] Care Team Providers Care Materials Specialist Name Role Phone Naa Patrick Primary Care Provider [phone] Linh Johnson NP Primary Care Provider [phone] Reason for Visit * Reason Onset Date Comments Call Back Request 09/10/2023 Encounter Details Date Type Department Care Team ([facility] st Contact Info) Description 09/10/[address] [facility] MEDICINE [address] [place], [place] [phone] Naa Patrick FNP [address] [place], [place] [phone] Call Back Request Social History Tobacco Use Types Packs/Day Years [...] encounter Miscellaneous Notes * Telephone Encounter - Abbi Mcrae RN - 09/11/2023 10:10 AM EDT Please review and advise for below request. * Telephone Encounter - Andrew Leon - 09/10/2023 3:09 PM EDT Tc from the patients daughter calling to request what is the next step after seeing Lab work results of Vitamin D, 25-Hydroxy, Total, Immunoassay documented in this encounter Plan of Treatment Not on file documented as of this encounter Visit Diagnoses Not on filedocumented in this encounter Additional Health Concerns Assessment Noted Time PHQ-9 Depression Total Score: 5 08/29/19 24 3:44 PM EDT documented as of this encounter Care Teams Materials Specialist Relationship Specialty Start Date End Date Naa Patrick FNP [address] [place] [address] PCP - General Family Medicine 02/12/22 01/01/24 Linh Johnson NP [address] [place] [address] PCP - General Family Medicine 01/02/24 documented as of this encounter
--- OUTSIDE RECORDS SUMMARY | 2024-08-26 11:45 | XMS_ITS | Encounter Summary ---
Author Organization [employer] Address [address] [place] [address] [address] [place] [address] Care Team Providers Care Licensed Staff Mft Name Role Phone Naa Patrick Primary Care Provider [phone] Linh Johnson NP Primary Care Provider [phone] Encounter Details Date Type Department Care Team (Latest Contact Info) Description 01/28/2020 Abstract [facility] CONVERSIONS Dental, Provider, DDS Social History Tobacco Use Types Packs/Day Years Used Date Smoking Tobacco: Never Assessed Sex and Gender Information Value Date Recorded Sex Assigned at Male 03/04/2022 10:32 AM EDT Legal Sex Male 10:32 AM EDT Gender Identity Male 03/04/2022 10:32 AM EDT Sexual Orientation Straight 03/04/2022 10 :32 AM EDT documented as of this encounter Plan of Treatment Not on file documented as of this encounter Visit Diagnoses Not on filedocumented in this encounter Care Teams Licensed Staff Mft Relationship Specialty Start Date End Date Naa Patrick FNP [address] [place] [address] PCP - General Family Medicine 02/12/22 01/01/24 Linh Johnson NP [address] [place] [address] PCP - General Family Medicine 01/02/24 documented as of this encounter
== END 2024-08-26 10:14 | disposition home or self-care (01) ==
LOC: HO.MRI 10:13
PROVIDERS: Visit Provider Psychiatry & Neurology Neurology
DX: G93.9 Disorder of brain, unspecified (principal)
CPT/HCPCS: 70553; A9585

== ENCOUNTER → 2024-08-26 10:45 | Outpatient (BNV) | payer OTHER, SELFPAY | PROVIDERS: Visit Provider Radiology Diagnostic Radiology | DX: G93.9 Disorder of brain, unspecified (principal) | CPT/HCPCS: 70553 ==

== ENCOUNTER 2024-10-12 11:39 | Outpatient (REF) | payer OTHER, SELFPAY ==
--- NOTE | ~2024-10-12 | XR_ITS ---
EXAMINATION: XR CHEST CLINICAL INFORMATION: decreased breath sounds RLL COMPARISON: None available. TECHNIQUE: 2 views of the chest were obtained. FINDINGS: No significant abnormality is noted involving the heart, lungs, mediastinum, bony thorax or soft tissues. XR/XR chest 2V IMPRESSION: No acute disease Electronically signed by: Rolando Clarke MD 10/12/2024 12:27 PM EDT RP
[2024-10-12 14:00] LABS: Cholesterol 170 mg/dL (<200); HDL Cholesterol 56 mg/dL (>40); LDL Cholesterol Calculated 83 mg/dL (<100); Triglycerides 157 mg/dL (<150)
--- OUTSIDE RECORDS SUMMARY | 2024-10-12 14:00 | XMS_ITS | Encounter Summary ---
Author Organization [employer] Address [address] [facility] 7 [place] [address] Care Team Providers Care Group Home Worker Name Role Phone Linh Johnson NP Primary Care Provider [phone] Reason for Visit * Reason Onset Date Comments Chart Prep 10/11/2024 Encounter Details Date Type Department Care Team ([facility] Contact Info) Description 10/11/2024 Telephone [facility] MEDICINE [address], [place] [phone] Linh Johnson NP [address], [place] [phone] Chart Prep Social History Tobacco Use Types Packs/Day Years Used Date Smoking Tobacco: Never Passive Smoke Exposure: Never Smokeless Tobacco: Never Comments:Last smoked 40 year s ago Alcohol Use Standard Drinks/Week Comments Not Currently 0 (1 standard drink = 0.6 oz pur e alcohol) Depression Answer Date Recorded Patient Health Questionnaire-9 Score 0 10/12/2024 Patient Health Questionnaire-9 Score 0 10/12/2024 Last PHQ-9: Questionnaire Data Not on file 0 10/12/2024 Housing Stability Answer Date Recorded What is your housing situation today? I have angle guaman 10/12/[address] you li ve. Do you have problems with any of the following? None of the above 10/12/2024 Food Insecurity Answer Date Recorded Within the past 12 months, y ou worried that your food would run out before you got money to buy more: Never True 09/28/2024 Within the past 12 months,th e food you bought just didn't last and you didn't have enough money to get more: Never True Transportation Answer Date Recorded In the past 12 months, has l ack of transportation kept you from medical appts, meetings, work or from getting things needed for daily living? No 09/28/2024 Utilities Answer Date Recorded In the past 12 months, has t he electric, gas, oil or water company threatened to shut off services in your home? No 09/28/2024 Depression Answer Date Recorded Patient Health Questionnaire-2 Score 0 10/12/2024 Internet Access Answer Date Recorded Internet Access Q1 No 10/12/2024 Internet Access Q2 I do not want or need it 10/03 Sex and Gender Information Value Date Recorded Sex Assigned at Male 03/04/2022 10:32 AM EDT Legal Sex Male 10:32 AM EDT Gender Identity Male 03/04/2022 10:32 AM EDT Sexual Orientation Straight 03/04/2022 10 :32 AM EDT documented as of this encounter Miscellaneous Notes * Telephone Encounter - Jaja Fine MA - 10/11/2024 9:05 AM EDT Chart Prep Labs: done Images: not applicable Referrals: complete Vaccines due: Covid, PCV20, and Zoster Screenings: not applicable Overdue care gaps: SBIRT and PHQ-9 documented in this encounter Plan of Treatment Upcoming Encounters Date Type Department Care Team (Late st Contact Info) Description 12/28/2024 10:15 AM EDT Office Visit [facility] MEDICINE [address] [place] [address] Name, MD Kaiden [address] [place] [address] documented as of this encounter Visit Diagnoses Not on filedocumented in this encounter Additional Health Concerns Assessment Noted Time PHQ-9 Depression Total Score: 5 08/29/19 24 3:44 PM EDT documented as of this encounter Care Teams Group Home Worker Relationship Specialty Start Date End Date Linh Johnson NP [address] [place] [address] PCP - General Family Medicine 01/02/24 documented as of this encounter
[2024-10-15 20:24] LABS: TS Negative Control Passed; TS Panel A 2; TS Panel B 1; TS Positive Control Passed; TSpotTB Negative (Negative)
== END 2024-10-12 11:40 | disposition home or self-care (01) ==
LOC: HO.HHCL 11:39
PROVIDERS: Visit Provider General Practice
DX: Z01.818 Encounter for other preprocedural examination (principal)
CPT/HCPCS: 36415; 71046; 80061; 82306; 86481

== ENCOUNTER → 2024-10-12 11:50 | Outpatient (BNV) | payer OTHER, SELFPAY | PROVIDERS: Visit Provider Radiology Diagnostic Radiology | DX: R91.8 Other nonspecific abnormal finding of lung field (principal) | CPT/HCPCS: 71046 ==

== ENCOUNTER 2024-11-11 13:22 | Outpatient (REF) | payer MEDICAID, SELFPAY ==
--- OUTSIDE RECORDS SUMMARY | 2024-11-11 13:26 | XMS_ITS | Encounter Summary ---
Author Organization [employer] [facility] Address [address] [place] [address] [address] [place] [address] Care Team Providers Care Monitor And Storage Bin Tender Name Role Phone Naa Patrick Primary Care Provider [phone] Linh Johnson EMBLEM MAKER Primary Care Provider [phone] Encounter Details Date Type Department Care Team (Latest Contact Info) Description 01/28/2020 Abstract [facility] CONVERSIONS Dental, Provider, DDS Social History Tobacco Use Types Packs/Day Years Used Date Smoking Tobacco: Never Assessed Sex and Gender Information Value Date Recorded Sex Assigned at Male 03/04/2022 10:32 AM EDT Legal Sex Male 10:32 AM EDT Gender Identity Male 03/04/2022 10:32 AM EDT Sexual Orientation Straight 03/04/2022 10 :32 AM EDT documented as of this encounter Plan of Treatment Upcoming Encounters Date Type Department Care Team ( st Contact Info) Description 12/28/2024 10:15 AM EDT Office Visit [facility] MEDICINE [address] [place] [address] Name, MD Kaiden [address] [place] [address] documented as of this encounter Visit Diagnoses Not on filedocumented in this encounter Care Teams Monitor And Storage Bin Tender Relationship Specialty Start Date End Date Naa Patrick FNP [address] [place] [address] PCP - General Family Medicine 02/12/22 01/01/24 Linh Johnson NP [address] [place] [phone] PCP - General Family Medicine 01/02/24 documented as of this encounter
--- OUTSIDE RECORDS SUMMARY | 2024-11-11 13:26 | XMS_ITS | Clinical Summary ---
Author Organization [facility] Address [address] [place] [address] Phone Care Team Providers Care Hose Inspector And Patcher Name Role Phone Linh Johnson Primary Care Provider [phone] Allergies No known active allergies Medications atorvastatin (LIPITOR) 20 mg tablet Take 1 tablet (20 mg total) by mouth 1 (one) time each day in the morning. Active HYDROcodone-carmita taminophen (NORCO) 5-325 mg per tablet 5 Active ibuprofen (ADVIL,MOTRIN) 800 mg tablet Take 1 tablet (800 mg total) by mouth 3 times daily. 2 Active lisinopriL (PRINIVIL,ZESTR IL) 10 mg tablet Take 1 tablet (10 mg total) by mouth 1 (one) time each day in the morning. Active sodium chloride (AYR) 0.65 % nasal drops 2 Active ondansetron (ZOFRAN) 8 mg tablet Take 1 tablet (8 mg total) by mouth every 8 (eight) hours if needed for nausea or vomiting. 20 tablet 11 5 03/30/20 25 Active dexAMETHasone (DECADRON) 4 mg tablet Take 1 tablet (4 mg total) by mouth 3 (three) times a day. 90 each 5 Active temozolomide (TEMODAR) 140 mg capsuleIndicati ons:glioblastom a multiforme Take one capsule (140 mg ) by mouth daily starting on the first day of radiation treatment. Take your anti-nausea medication (Zofran/ondanset leonard) 30 minutes before Temodar. Swallow Temodar capsules whole with a glass of water; do not open or chew. If capsules are accidentally opened or damaged, avoid contact with skin or mucous membranes. 42 capsule Active Active Problems Problem Noted Date Diagnosed Date Class 1 obesity 10/01/2024 Glioblastoma ([facility]/HCC V24, [facility]/HCC V28) 10/02/19 25 Left hemiparesis ([facility]/HCC V24, [facility]/HCC V28) 09/04 Anemia complicating neoplastic disease Acute conjunctivitis 11/25/2022 Pain in eye 11/25/2022 Essential hypertension 05/15/2022 Mixed hyperlipidemia 05/15/2022 Osteoarthritis of knee 04/25/2017 Synovial cyst of popliteal space 04/25/2017 Anterior knee pain 03/25/2017 Encounters Date Type Department Care Team Description 11/09/2024 Telephone [facility] Radiation Oncology [address] [place] [phone] Alexsandra Suero MD 10/20/2024 Telephone [facility] Hematology Oncology [address] [place] [phone] Javiramstevo-Ryder Marsh MD Plan of Care Changes 10/19/2024 11:30 AM EDT - 10/19/2024 11:59 PM EDT Hospital Encounter [facility] Radiation Oncology [address] [place] [phone] Discharge Disposition: Home or Self Care 10/13/2024 8:57 AM EDT - 10/13/2024 11:59 PM EDT Hospital Encounter [facility] Radiation Oncology [address] [place] [phone] Alexsandra Suero MD Glioblastoma ([facility] V24, [facility] V28) Discharge Disposition: Home or Self Care 10/13/2024 8:15 AM EDT - 10/13/2024 11:59 PM EDT Hospital Encounter [facility] Radiation Oncology [address] [place] [phone] Glioblastoma ([facility]/HCC V24, [facility]/HCC V28) (Primary Dx) Discharge Disposition: Home or Self Care 10/06/2024 4:00 PM EDT Lab Draw Station - [address] [phone] Glioblastoma ([facility]/HCC V24, [facility]/HCC V28) 10/06/2024 2:29 PM EDT - 10/06/2024 11:59 PM EDT Hospital Encounter [facility] Radiation Oncology [address] [place] [phone] Alexsandra Suero MD Glioblastoma ([facility] V24, [facility] V28) (Primary Dx) Discharge Disposition: Home or Self Care 10/06/2024 2:28 PM EDT - 10/06/2024 11:59 PM EDT Hospital Encounter [facility] Radiation Oncology [address] [place] [phone] Discharge Disposition: Home or Self Care 10/04/2024 Telephone [facility] Hematology Oncology [address] [place] [phone] Linda Staley, deputy sheriff civil division 2nd opinion 10/01/2024 1:30 PM EDT Office Visit [facility] Hematology Oncology [address] [place] [phone] Mila-Ryder Marsh MD Glioblastoma ([facility] V24, [facility] V28) (Primary Dx); Left hemiparesis ([facility] V24, [facility] V28); Anemia complicating neoplastic disease 10/01/2024 Telephone [facility] Radiation Oncology [address] [place] [phone] Justina Santana MA from Last 3 Months Surgical History Surgery Date Site/Laterality Comments BRAIN TUMOR EXCISION LIPOMA RESECTION KNEE SURGERY Medical History Medical History Date Comments Hyperlipidemia Hypertension Brain cancer ([facility] V24, [facility] V28) Social History Tobacco Use Types Packs/Day Years Used Date Smoking Tobacco: Former Cigarettes Smokeless Tobacco: Never Alcohol Use Standard Drinks/Week Comments Never 0 (1 standard drink = 0.6 oz pur e alcohol) Sex and Gender Information Value Date Recorded Sex Assigned at Male 09/29/2024 8:30 AM EDT Legal Sex Male 8:21 AM EDT Gender Identity Male 09/29/2024 8:30 AM EDT Sexual Orientation Straight 09/29/2024 8: 30 AM EDT Travel History Travel Start Travel End [place] 09/12/2024 10/13/2024 Obstetrics History Last Filed Vital Signs Vital Sign Reading Time Taken Comments Blood Pressure 115/70 10/06/2024 2:39 PM EDT Pulse 73 10/06/2024 2:39 PM EDT Temperature 36.7 C (98 F) 10/06/2024 2:39 PM EDT Respiratory Rate 16 10/06/2024 2:39 PM EDT Oxygen Saturation 100% 10/06/2024 2:39 PM EDT Inhaled Oxygen Concentration - - Weight 79.8 kg (176 lb) 10/06/2024 2:39 PM EDT Height 167.6 cm (5' 6 ) 10/06/2024 2:39 PM EDT Body Mass Index 28.41 10/06/2024 2:39 PM EDT Plan of Treatment Health Maintenance Due Date Last Done Comments Pneumococcal Vaccine: 50+ Years (1 of 2 - PCV) 1979 Zoster Vaccines (2 of 2) 10/24/2023 08/29/2023 COVID-19 Vaccine (4 - 2023-2 5 season) 2024 11/16/2021, 09/20/2020, 08/30/2020 Colorectal Cancer Screening: Colonoscopy 09/29/2024 Hepatitis C Screening 09/29/2024 Social Influencers of Health Screening 09/29/2024 Influenza Vaccine (#1) 2025 , 03/22/2018, 03/25/2017 Hypertension/CHF/CAD Annual BMP Blood Test 10/22/2025 10/22/2024, 10/06/2024, 09/06/2023 Depression Screening 11/08/2025 11/08/2024 DTaP,Tdap,and Td Vaccines (2 - Td or Tdap) 03/25/2027 03/25/2017 Cholesterol Screening (Lipid Panel) 10/12/2029 10/12/2024, 09/06/2023 RSV Immunization Adult Patients Completed 08/29/2023 HIV Screening Completed 09/12/2023 HIB Vaccines Aged Out No longer [...] on patient's age to complete this topic IPV Vaccines Aged Out No longer eligi ble based on patient's age to complete this topic MMR Vaccines Aged Out No longer eligi ble based on patient's age to complete this topic Meningococcal ACWY Vaccine Aged Out N o longer eligible based on patient's age to complete this topic Meningococcal B Vaccine Aged Out No l onger eligible based on patient's age to complete this topic RSV Immunization Patients Under 20 months Aged Out No longer eligible b ased on patient's age to complete this topic Varicella Vaccines Aged Out No longer eligible based on patient's age to complete this topic Procedures Procedure Name Priority Date/Time Associated Diagnosis Comments CBC WITH AUTO DIFFERENTIAL Routine 10/06/2024 3:49 PM EDT Glioblastoma ([facility] V24, [facility] V28) COMPREHENSIVE METABOLIC PANEL Routine 10/06/2024 3:49 PM EDT Glioblastoma ([facility]/HCC V24, [facility] V28) CBC AND DIFFERENTIAL Routine 10/06/2024 3:49 PM EDT Glioblastoma ([facility]/HCC V24, [facility] V28) from Last 3 Months Results * (ABNORMAL) CBC auto differential (10/06/2024 3:49 PM EDT) WBC 8.3 4.8 - 10.8 K/mcL LAB HEMETOLOGY METHOD 10/06/2024 4:55 PM EDT [facility] RBC 4.50 4.50 - 5.50 M/mcL LAB HEMETOLOGY METHOD 10/06/2024 4:55 PM EDT [facility] Hemoglobin 13.3(L) 13.5 - 17.5 g/dL LAB HEMETOLOGY METHOD 10/06/2024 4:55 PM EDT [facility] Hematocrit 40.7(L) 42.0 - 54.0 % LAB HEMETOLOGY METHOD 10/06/2024 4:55 PM EDT [facility] MCV 90.0 79.0 - 98.0 FL LAB [facility] MCH 29.4 27.0 - 32.0 pcg LAB HEMETOLOGY METHOD 10/06/2024 4:55 PM [facility] MCHC 32.7 32.0 - 37.0 g/dL LAB HEMETOLOGY METHOD 10/06/2024 4:55 PM [facility] RDW 12.3 11.0 - 15.0 % LAB HEMETOLOGY METHOD 10/06/2024 4:55 PM [facility] Platelets 364 130 - 400 K/mcL LAB HEMETOLOGY METHOD 10/06/2024 4:55 PM [facility] MPV 10.3 7.0 - 11.0 FL LAB HEMETOLOGY METHOD 10/06/2024 4:55 PM [facility] NRBC 0.0 <1.0 % LAB HEMETOLOGY METHOD 10/06/2024 4:55 PM [facility] NRBC Absolute 0.00 <0.10 K/mcL LAB HEMETOLOGY METHOD 10/06/2024 4:55 PM [facility] Neutrophils Relative 64.1 % LAB HEMETOLOGY METHOD 10/06/2024 4:55 PM [facility] Lymphocytes Relative 26.1 % LAB HEMETOLOGY METHOD 10/06/2024 4:55 PM [facility] Monocytes Relative 8.8 % LAB HEMETOLOGY METHOD 10/06/2024 4:55 PM [facility] Eosinophils Relative 0.4 % LAB HEMETOLOGY METHOD 10/06/2024 4:55 PM [facility] Basophils Relative 0.4 % LAB HEMETOLOGY METHOD 10/06/2024 4:55 PM EDT [facility] Immature Granulocytes Relative 0.2 % LAB HEMETOLOGY METHOD 10/06/2024 4:55 PM EDT [facility] Neutrophils Absolute 5.35 1.50 - 7.00 K/mcL LAB HEMETOLOGY METHOD 10/06/2024 4:55 PM EDT [facility] Lymphocytes Absolute 2.18 1.00 - 5.00 K/mcL LAB HEMETOLOGY METHOD 10/06/2024 4:55 PM EDT [facility] Monocytes Absolute 0.73 0.20 - 1.00 K/mcL LAB HEMETOLOGY METHOD 10/06/2024 4:55 PM EDT [facility] Eosinophils Absolute 0.03 0.00 - 0.50 K/mcL LAB HEMETOLOGY METHOD 10/06/2024 4:55 PM EDT [facility] Basophils Absolute 0.03 0.00 - 0.20 K/mcL LAB HEMETOLOGY METHOD 10/06/2024 4:55 PM EDT [facility] Immature Granulocytes Absolute 0.02 0.00 - 0.03 K/mcL LAB HEMETOLOGY METHOD 10/06/2024 4:55 PM EDT [facility] Blood Venous blood specimen / Unknown Venipuncture / Unknown 10/06/2024 3:49 PM EDT 10/06/2024 4:36 PM EDT us Ryder Hendricks MD LAB BLOOD ORDERABLE S Final Result [facility] [address] [place] [address], * Comprehensive metabolic panel (10/06/2024 3:49 PM EDT) [facility] Signature Sodium 138 133 - 145 mmol/L LAB CHEMISTRY METHOD 10/06/2024 5:16 PM [facility] Potassium 4.1 3.5 - 5.5 mmol/L LAB CHEMISTRY METHOD 10/06/2024 5:16 PM [facility] Chloride 106 96 - 110 mmol/L LAB CHEMISTRY METHOD 10/06/2024 5:16 PM [facility] CO2 27 21 - 32 mmol/L LAB CHEMISTRY METHOD 10/06/2024 5:16 PM [facility] Anion Gap 5 3 - 11 LAB CHEMISTRY METHOD 10/06/2024 5:16 PM [facility] Glucose 98 70 - 100 mg/dL LAB CHEMISTRY METHOD 10/06/2024 5:16 PM [facility] BUN 11 5 - 25 mg/dL LAB CHEMISTRY METHOD 10/06/2024 5:16 PM [facility] Creatinine 0.92 0.70 - 1.30 mg/dL LAB CHEMISTRY METHOD 10/06/2024 5:16 PM [facility] eGFR 93 >=60 mL/min/1. 73m2 LAB CHEMISTRY METHOD 10/06/2024 5:16 PM [facility] Comment:Calculation based on the Chronic Kidney Disease Epidemiology Collaboration (CKD-EPI) equation refit without adjustment for race. BUN/Creatinine Ratio 12.0 LAB CHEMISTRY METHOD 10/06/2024 5:16 PM [facility] Calcium 9.2 8.5 - 10.5 mg/dL LAB CHEMISTRY METHOD 10/06/2024 5:16 PM [facility] AST (SGOT) 16 10 - 42 unit/L LAB CHEMISTRY METHOD 10/06/2024 5:16 PM [facility] ALT (SGPT) 31 10 - 60 unit/L LAB CHEMISTRY METHOD 10/06/2024 5:16 PM [facility] Alkaline Phosphatase 98 42 - 121 unit/L LAB CHEMISTRY METHOD 10/06/2024 5:16 PM EDT [facility] Total Protein 6.9 6.0 - 8.0 g/dL LAB CHEMISTRY METHOD 10/06/2024 5:16 PM EDT [facility] Albumin 3.5 3.2 - 5.0 g/dL LAB CHEMISTRY METHOD 10/06/2024 5:16 PM EDT [facility] Total Bilirubin 0.5 0.0 - 1.4 mg/dL LAB CHEMISTRY METHOD 10/06/2024 5:16 PM EDT [facility] Blood Venous blood specimen / Unknown Venipuncture / Unknown 10/06/2024 3:49 PM EDT 10/06/2024 4:36 PM EDT us Ryder Hendricks MD LAB BLOOD ORDERABLE S Final Result [facility] [address] [place] [address], from Last 3 Months Insurance MEDICA[place] - [place] Advance Directives Documents on File Type Date Recorded Patient Director Religious Education Expl anation Advance Directives and Living Will 10/07/2024 11:46 AM Healthcare proxy Care Teams Hose Inspector And Patcher Relationship Specialty Start Date End Date Linh Johnson FNP [address] [place] [phone] PCP - General Nurse Practitioner 10/06/24
[2024-11-11 17:26] LABS: Hematocrit 34.2 % (42.0-52.0); Hemoglobin 11.2 g/dl (14.0-18.0); Mean Corpuscular HGB Conc 32.7 g/dl (31.0-36.0); Mean Corpuscular Hemoglobin 29.5 pg (27.0-33.0); Mean Corpuscular Volume 90.0 fL (80.0-98.0); NRBC Abs Auto 0.000 X10*3/uL (0.0-0.012); NRBC Pct Auto 0.0 /100WBC (0.0-0.2); Platelet Count 348 X10*3/uL (160-400); Red Blood Count 3.80 X10*6/uL (4.60-5.80); White Blood Count 8.5 X10*3/uL (4.8-10.8)
== END 2024-11-11 13:23 | disposition home or self-care (01) ==
LOC: HO.HHCL 13:22
PROVIDERS: PCP Nurse Practitioner Family; Visit Provider Family Medicine
DX: R21 Rash and other nonspecific skin eruption (principal)
CPT/HCPCS: 36415; 85027; 86592